=== PATIENT | female | born 1955 ===

== ENCOUNTER 2021-12-10 07:00 | Outpatient (CLI) | payer MEDICARE, BC, OTHER ==
[~2021-12-10] VITALS: Ht 157.5 cm; Wt 55.6 kg
[2021-12-10 08:10] LABS: HEMATOCRIT 42.9 % (37.0-47.0); HEMOGLOBIN 13.8 g/dl (12.5-16.0); MEAN CELL VOLUME 90 fl (80.0-100.0); MEAN CORPUSCULAR HEMOGLOBIN 29 pg (27-31); MEAN CORPUSCULAR HGB CONC 32 g/dl (33.0-37.0); MEAN PLATELET VOLUME 9.5 fl (7.4-10.4); PLATELET COUNT 242 K/mm3 (130-400); RED BLOOD COUNT 4.75 M/mm3 (4.10-5.30); REDCELL DISTRIBUTION WIDTH-CV 13.2 % (11.5-14.5)
[2021-12-10 08:23] LABS: CALCIUM 9.1 mg/dL (8.4-10.2); CREATININE, serum 0.77 mg/dL (0.57-1.11); POTASSIUM 4.3 mmol/L (3.5-4.5)
[2021-12-10 08:44] VITALS: BP 125/71; PULSE 59; TEMP 98.6
[2021-12-10] MEDS ORDERED: VITAMIND3 5000 PO (08:53)
[2021-12-10] MEDS ORDERED: GALZIN25 MG PO (08:56)
[2021-12-10] MEDS ORDERED: CALCIUM 600 MG1 EAC2 PO (08:57)
[2021-12-10] MEDS ORDERED: VITAMIN C500 MG PO (08:58)
[2021-12-10] MEDS ORDERED: REFRESH CELLUVI1 SOL OP (09:01)
[2021-12-10] MEDS ORDERED: ASPIRIN E.C. 8181 MG PO (09:01)
[2021-12-10] MEDS ORDERED: LIPITOR 10MG10 MG PO (09:01)
[2021-12-10] MEDS ORDERED: LACRI LUBE1 OIN OP (09:02)
[2021-12-10] MEDS ORDERED: REFRESH PLUS 00.4 M1 OP (09:02)
[2021-12-10 10:05] VITALS: BP 120/76; PULSE 54
[2021-12-10 10:15] VITALS: BP 110/68; PULSE 60
[2021-12-10 10:30] VITALS: BP 122/80; PULSE 59
[2021-12-10 10:45] VITALS: BP 122/84; PULSE 60
[2021-12-10 11:00] VITALS: BP 126/80; PULSE 57
--- NOTE | 2021-12-10 11:35 | NUR ---
Pt is steady on feet in room. DC instructions reviewed with pt, she expressed understanding. She has tolerated PO fluids without issue. INT DC'd with catheter intact. She is assisted out to son's car by wheelchair.
== END 2021-12-10 11:40 | disposition home or self-care (01) ==
LOC: COL.RAD 07:00
PROVIDERS: Internal Medicine Cardiovascular Disease
DX: I63.9 Cerebral infarction, unspecified (principal)
CPT/HCPCS: J2704